=== PATIENT | male | born 1960 | race Caucasian/White ===

== ENCOUNTER 2023-11-22 07:32 | Outpatient (CLI) | payer MEDICARE ==
[2023-11-22 07:44] LABS: BASOPHILS % (AUTO) 0.8 %; EOSINOPHILS # (AUTO) 0.1 10^3/uL (0.0-0.7); EOSINOPHILS % (AUTO) 3.7 %; HCT - HEMATOCRIT 43.8 % (42.0-52.0); HGB - HEMOGLOBIN 14.1 g/dL (14.0-18.0); LYMPHOCYTES % (AUTO) 27.7 %; MEAN CORPUSCULAR HGB CONC 32.2 g/dL (32.0-36.0); MEAN CORPUSCULAR VOLUME 96.3 fL (80.0-94.0); MEAN PLATELET VOLUME 8.9 fL (7.4-11.4); MONOCYTES # (AUTO) 0.5 10^3/uL (0.0-1.0); MONOCYTES % (AUTO) 13.3 %; PLT - PLATELET COUNT 186 10^3/uL (130-450); RED BLOOD COUNT 4.55 10^6/uL (4.70-6.10); RED CELL DISTRIBUTION WIDTH 12.2 % (12.0-15.0); WHITE BLOOD COUNT 3.8 x10^3/uL (4.8-10.8)
[2023-11-22 08:01] LABS: ALBUMIN 4.1 g/dL (3.2-5.5); ALBUMIN/GLOBULIN RATIO 1.5 (1.0-2.2); ALKALINE PHOSPHATASE 33 IU/L (42-121); ALT ALANINE AMINOTRANSFERASE 17 IU/L (10-60); AST ASPARTATE AMINOTRANSFERASE 18 IU/L (10-42); BILIRUBIN,TOTAL 0.5 mg/dL (0.2-1.0); BUN - BLOOD UREA NITROGEN 25 mg/dL (6-20); CALCIUM 9.8 mg/dL (8.5-10.3); CARBON DIOXIDE - CO2 29 mmol/L (21-32); CHLORIDE 105 mmol/L (101-111); CHOL/HDL RATIO 2.4 (<5.0); CHOLESTEROL 178 mg/dL; CREATININE 1.1 mg/dL (0.6-1.3); GFR - MDRD 67 (>89); GLUCOSE 88 mg/dL (74-104); HDL CHOLESTEROL 73 mg/dL; LDL CHOLESTEROL,CALCULATED 93 mg/dL; LDL/HDL RATIO 1.3 (<3.6); POTASSIUM 3.9 mmol/L (3.5-4.5); SODIUM 139 mmol/L (135-145); TOTAL PROTEIN 6.8 g/dL (6.4-8.9); TRIGLYCERIDES 58 mg/dL (48-352); VLDL CHOLESTEROL 12 mg/dL
[2023-11-22 08:14] LABS: THYROID STIMULATING HORMONE 0.02 uIU/mL (0.34-5.60)
== END 2023-11-22 07:33 | disposition home or self-care (01) ==
LOC: LAB 07:32
PROVIDERS: ATTEND Nurse Practitioner Family
DX: E78.5 Hyperlipidemia, unspecified (principal); N40.0 Benign prostatic hyperplasia without lower urinary tract symptoms; E03.9 Hypothyroidism, unspecified; R53.82 Chronic fatigue, unspecified
CPT/HCPCS: 36415; 80053; 80061; 83721; 84153; 84439; 84443; 84481; 85025

== ENCOUNTER 2024-01-06 08:37 | Outpatient (CLI) | payer MEDICARE ==
[2024-01-06 09:27] LABS: THYROID STIMULATING HORMONE 0.04 uIU/mL (0.34-5.60)
== END 2024-01-06 08:38 | disposition home or self-care (01) ==
LOC: LAB 08:37
PROVIDERS: ATTEND Nurse Practitioner Family
DX: E03.9 Hypothyroidism, unspecified (principal)
CPT/HCPCS: 36415; 84439; 84443; 84481